=== PATIENT | female | born 1960 | race Caucasian/White ===

== ENCOUNTER 2020-05-11 08:28 | Day surgery (SDC) | payer OTHER ==
[~2020-05-11] VITALS: Ht 157.5 cm; Wt 77.1 kg
[2020-05-11 08:37] VITALS: BP 149/74
[2020-05-11 13:07] VITALS: BP 143/66
== END 2020-05-11 13:00 | disposition home or self-care (01) ==
LOC: DS 08:28 → GI 10:30 → OR 10:30 → DS 13:00
PROVIDERS: ATTEND Surgery
DX: Z12.11 Encounter for screening for malignant neoplasm of colon (principal); K64.4 Residual hemorrhoidal skin tags; K64.8 Other hemorrhoids; K21.9 Gastro-esophageal reflux disease without esophagitis; K29.70 Gastritis, unspecified, without bleeding
CPT/HCPCS: 43235; 45378; 88344; J1200; J1610; J2250; J2310; J3010; J3490